=== PATIENT | male | born 1945 | race Caucasian/White ===

== ENCOUNTER 2017-07-06 18:41 | Emergency (ER) | payer BC, OTHER ==
[~2017-07-06] VITALS: Ht 170.2 cm; Wt 98.0 kg
[~2017-07-06 18:41] MED LIST: ATAC32TA PO; ATEN1TAB73 PO; HYDR10TA23 PO; LEVA500T33 PO; METR-1 PO; NISOLDIPINE PO; SPIR25 PO
[2017-07-06 18:47] VITALS: BP 189/97; PULSE 105; RESP 16; TEMP 99.5; O2SAT 96
[2017-07-06 19:55] VITALS: BP 184/97; PULSE 104; RESP 18; O2SAT 95
--- NOTE | 2017-07-06 20:05 | PD ---
HPI Chief Complaint: Hypertension Time Seen by Provider: 20:05 Travel History International Travel<30 days: No Contact w/Intl Traveler<30days: No Traveled to known affect area: No History of Present Illness HPI 72-year-old male came to the emergency room with history of uncontrolled hypertension. Patient is on antihypertensive medications but he says his blood pressure fluctuates and goes more than 200s on occasions in spite of the medication. He has been to his primary care physician but when he goes to see his primary care physician blood pressure usually is within normal limit and no changes are made to his medications. He is also been experiencing on and off headache. He is awake and answering questions appropriately. When I was seeing him his blood pressure was 187 systolic. Patient denies of any chest pain or blurred vision. He says otherwise he is doing fine. [facility] Past Medical History Narrative Medical List of his past medical, surgical, social and family history is reviewed from the nursing note. Hx Anticoagulant Therapy: Yes (81mg asa) Cardiovascular Problems: Yes (htn on meds) Diverticulitis: Yes Hypertension: Yes Past Surgical History Tonsillectomy: Yes Social History Alcohol Use: Yes (SOCIAL) Tobacco Use: No Substance Use: No Allergies-Medications (Allergen,Severity, Reaction): Coded Allergies: No Known Allergies (Verified Adverse Reaction, Unknown, 07/06/17) Comments No known drug allergies. Reported Meds & Prescriptions Reported Meds & Active Scripts Active Lopressor (Metoprolol Tartrate) 50 Mg Tab 25 Mg PO BID Reported Xanax (Alprazolam) 1 Mg Tab 1 Mg PO Q8H PRN Amlodipine (Amlodipine Besylate) 10 Mg Tab 10 Mg PO DAILY Valsartan 320 Mg Tab 320 Mg PO DAILY Narrative Medication List of his home medications reviewed from the nursing note. Review of Systems Except as stated in HPI: all other systems reviewed are Neg Neurologic: Positive: Headache Physical Exam Narrative GENERAL: Awake, alert, elderly, no obvious distress SKIN: Focused skin assessment warm/dry. HEAD: Atraumatic. Normocephalic. EYES: Pupils equal and round. No scleral icterus. No injection or drainage. ENT: No nasal bleeding or discharge. Mucous membranes pink and moist. NECK: Trachea midline. No JVD. CARDIOVASCULAR: Regular rate and rhythm. No murmur appreciated. RESPIRATORY: No accessory muscle use. Clear to auscultation. Breath sounds equal bilaterally. GASTROINTESTINAL: Abdomen soft, non-tender, nondistended. Hepatic and splenic margins not palpable. MUSCULOSKELETAL: No obvious deformities. No clubbing. No cyanosis. No edema. NEUROLOGICAL: Awake and alert. No obvious cranial nerve deficits. Motor grossly within normal limits. Normal speech. PSYCHIATRIC: Appropriate mood and affect; insight and judgment normal. Data Data Last Documented VS Vital Signs Date Time Temp Pulse Resp B/P (MAP) Pulse Ox O2 Delivery O2 Flow Rate FiO2 07/06/17 21:04 90 16 160/71 (100) 96 07/06/17 20:37 Room Air 07/06/17 18:47 99.5 Orders Orders Clonidine (Catapres) (07/06/17 20:30) Ed Discharge Order (07/06/17 21:00) Acetaminophen (Tylenol) (07/06/17 21:15) [facility] Medical Decision Making Medical Screen Exam Complete: Yes Emergency Medical Condition: Yes Medical Record Reviewed: Yes Differential Diagnosis Essential hypertension, uncontrolled hypertension Narrative Course 8:58 PM have given him a dose of clonidine. Seems like his blood pressure is coming down. I will discharge him home on a beta-alexandro in addition. Procedures EKG Prior to Arrival: No Diagnosis Primary Impression: Essential hypertension Additional Impression: Uncontrolled hypertension Referrals: Primary Care Physician 3 days Additional Instructions: Take the medication as per the prescription direction. Return to the emergency room if the condition worsens or any other new concerns. Otherwise follow-up with your primary care. Med/Other Pt SpecificInfo: Prescription(s) given Scripts Metoprolol Tartrate (Lopressor) 50 Mg Tab 25 MG PO BID, #30 TAB 0 Refills Prov: Qi Truong MD 07/06/17 Disposition: 01 DISCHARGE HOME Condition: Stable Qi Truong MD Jul 06, 2017 20:05
[2017-07-06] MEDS ORDERED: AMLO10TA2 PO (20:08)
[2017-07-06] MEDS ORDERED: XANA1TAB2 PO (20:08)
[2017-07-06] MEDS ORDERED: VALS1TAB70 PO (20:08)
[2017-07-06 20:15] VITALS: BP 181/98; PULSE 98; RESP 18; O2SAT 98
[2017-07-06] MEDS ORDERED: cloNIDine HCL 0.1 MG TAB PO ONE (20:30)
[2017-07-06 20:37] VITALS: BP 163/88; PULSE 96; RESP 18; O2SAT 96
[2017-07-06] MEDS ORDERED: METO-309 PO (21:00)
[2017-07-06 21:04] VITALS: BP 160/71
[2017-07-06] MEDS ORDERED: ACETAMINOPHEN 325 MG TAB PO ONE (21:15)
== END 2017-07-06 21:26 | disposition home or self-care (01) ==
LOC: PHED 18:41
DX: I10 Essential (primary) hypertension (principal)
CPT/HCPCS: 99283